=== PATIENT | male | born 1970 | race Asian ===

== ENCOUNTER → 2023-12-10 | Day surgery (SDC) | payer OTHER ==
[~2023-12-10] MED LIST: LEVOTHYROXINE112 MCG PO; LIPITOR10 MG PO; RAMIPRIL5 MG PO; SOLIQUA 100 UNIT3 ML SC; XIGDUO XR 10 M1 EAC1 PO
[2023-12-10] MEDS: LACTATED RINGER'S 1,000 ML ONE (08:20)
[2023-12-10 10:41] VITALS: TEMP 97
[2023-12-10 11:10] VITALS: BP 151/86; PULSE 50; RESP 16; O2SAT 100
== END | disposition home or self-care (01) ==
LOC: OR 08:14
PROVIDERS: ATTEND Internal Medicine Gastroenterology
DX: Z12.11 Encounter for screening for malignant neoplasm of colon (principal); K63.5 Polyp of colon; K57.30 Diverticulosis of large intestine without perforation or abscess without bleeding; K64.8 Other hemorrhoids; E11.9 Type 2 diabetes mellitus without complications; I10 Essential (primary) hypertension; E78.5 Hyperlipidemia, unspecified; E03.9 Hypothyroidism, unspecified; Z01.810 Encounter for preprocedural cardiovascular examination; Z79.84 Long term (current) use of oral hypoglycemic drugs; Z79.4 Long term (current) use of insulin; Z79.899 Other long term (current) drug therapy
CPT/HCPCS: 36415; 45385; 82948; 93005; J7121; 45378